=== PATIENT | male | born 1985 | race Caucasian/White ===

== ENCOUNTER 2019-09-12 18:41 | Emergency (ER) | payer OTHER ==
[~2019-09-12] VITALS: Ht 182.9 cm; Wt 79.4 kg
--- NOTE | 2019-09-12 19:20 | NUR ---
Enedina peña in EDM - 09/12/19 at 1922 by MAG PT CAME IN WITH C/O OF PAIN IN HIS RIGHT FOREARM TO ELBOW FOR 4-6x WEEKS. PT I
--- NOTE | 2019-09-12 19:21 | NUR ---
PT CAME IN WITH C/O OF PAIN IN HIS RIGHT FOREARM TO ELBOW FOR 4-6x WEEKS. PT IS IN BED 9. NAD. AAOX4. NO SOB.
[2019-09-12 19:33] VITALS: BP 117/79
--- NOTE | 2019-09-12 19:33 | NUR ---
Patient discharged to home in stable condition. Written and verbal after care instructions given. Patient verbalizes understanding of instruction.
== END 2019-09-12 19:35 | disposition home or self-care (01) ==
LOC: ER 18:44
DX: M77.9 Enthesopathy, unspecified (principal)